=== PATIENT | male | born 1960 | race Caucasian/White ===

== ENCOUNTER 2021-03-12 22:48 | Emergency (ER) | payer BC ==
[~2021-03-12] VITALS: Ht 177.8 cm; Wt 102.2 kg
[2021-03-13] MEDS ORDERED: TETRACAINE 0.5% OPHTH SOLUTION 4ML BOTTLE. OU ONE (00:57)
[2021-03-13] MEDS ORDERED: ERYTHROMYCIN 0.5% OPHTH OINTMENT 1GM TUBE. OU ONE (00:57)
[2021-03-13] MEDS ORDERED: FLUORESCEIN 1MG EYE STRIP. OU ONE (00:57)
[2021-03-13] MEDS ORDERED: KETOROLAC TROMETHAMINE 0.5% OPHTH SOLUTION BOTTLE. OS ONE (01:30)
[2021-03-13] MEDS ORDERED: DIPH,PERTUSS(ACELL),TET VAC/PF 0.5 ML SYRINGE. VAX IM ONE (01:30)
[2021-03-13] MEDS ORDERED: ERYTHROMYCIN 0.5% OPHTH OINTMENT 1GM TUBE. OS ONE (01:30)
[2021-03-13 02:25] VITALS: BP 180/89
--- NOTE | 2021-03-14 04:59 | PHYS DOC ---
General Adult EDM: Chief Complaint: EYE PROBLEMS HPI: HPI: .." I had my soft contacts in a little long.. and I had trouble getting the Lt one out.. and I scratched. my Lt. eye.. I think.. " Patient is a 60 year old male who presents with above hx and complaints of left eye injury and attempting to remove his contact lens. Patient visiting family here locally. Patient denies any significant changes in vision but left eye feels irritated. Patient does have glasses with him. Visual acuity as per nursing showed 20/70 left eye 20/30 right eye and 20/20 both eyes. Patient denies any history of immunosuppression. No history of abnormal eye exams other than astigmatism and farsighted. Patient does do yearly checkups. Patient denies any history of immunosuppression. Patient Does not remember his last tet anus. Review of Systems: Review of Systems: Constitutional: Denies fever or chills Eyes: Complaints of left eye irritation HENT: Denies nasal congestion or sore throat Respiratory: Denies cough or shortness of breath Cardiovascular: Denies chest pain or edema GI: Denies abdominal pain, nausea, vomiting, bloody stools or diarrhea : Denies dysuria Musculoskeletal: Denies back pain or joint pain Integument: Denies rash Neurologic: Denies headache, focal weakness or sensory changes Endocrine: Denies polyuria or polydipsia Lymphatic: Denies swollen glands Psychiatric: Denies depression or anxiety Family History: Family History: Noncontributory to presentation Current Medications: Current Meds: See nursing for home meds Current Medications Medications (Trade) Dose Ordered Sig/Mirna Start Time Stop Time Status Last Admin Dose Admin Diphtheria/ Pertussis/Tetanus Vacc (ADACEL TDap SYRINGE) 0.5 ml ONCE ONCE 03/13/21 01:30 03/13/21 01:31 DC 03/13/21 02:24 0.5 ML Erythromycin (Romycin) 0.25 inch 1X ONCE 03/13/21 01:30 03/13/21 01:31 DC Fluorescein Sodium (Ful-Nancy 1mg) 1 strip 1X ONCE 03/13/21 00:57 03/13/21 00:58 DC 03/13/21 02:21 1 STRIP Ketorolac Tromethamine (Acular) 2 drop 1X ONCE 03/13/21 01:30 03/13/21 01:31 DC 03/13/21 02:22 2 DROP Tetracaine HCl (Tetracaine) 1 drop 1X ONCE 03/13/21 00:57 03/13/21 00:58 DC 03/13/21 02:23 1 DROP Allergies: Allergies: Allergies Coded Allergies Type Severity Reaction Last Updated Verified No Known Drug Allergies 03/13/21 No Physical Exam: PE: Constitutional: Moderate o acute distress, non-toxic appearance. [] HENT: Normocephalic, atraumatic, bilateral external ears normal, oropharynx moist, no oral exudates, nose slight rhinorrhea. Eyes: PERRLA, EOMI, conjunctiva injected left eye, no discharge. [] Fluorescein shows a corneal abrasion in the left eye. There is no limbus injection. No obvious cell or flare. Visual acuity as per nursing Neck: Normal range of motion, no tenderness, supple, no stridor. [] Cardiovascular:Heart rate regular rhythm, no murmur. PMI slightly left Lungs & Thorax: Bilateral breath sounds equal at apex auscultation [] Abdomen: Bowel sounds normal, soft, no tenderness, no masses, no pulsatile masses. [] Skin: Warm, dry, no erythema, no rash. [] Back: No tenderness, no CVA tenderness. [] Extremities: No tenderness, no cyanosis, no clubbing, ROM intact, no edema. [] Neurologic: Alert and oriented X 3, normal motor function, normal sensory function, no focal deficits noted. [] Psychologic: Affect anxious, judgement normal, mood normal. [] EKG: EKG: [] Radiology/Procedures: Radiology/Procedures: [] Heart Score: C/O Chest Pain: N/A Risk Factors: Risk Factors: DM, Current or recent (<one month) smoker, HTN, HLP, family history of CAD, obesity. Risk Scores: Score 0 - 3: 2.5% MACE over next 6 weeks - Discharge Home Score 4 - 6: 20.3% MACE over next 6 weeks - Admit for Clinical Observation Score 7 - 10: 72.7% MACE over next 6 weeks - Early Invasive Strategies Course & Med Decision Making: Course & Med Decision Making Pertinent Labs and Imaging studies reviewed. (See chart for details) Patient not to use contacts until left eye abrasion completely resolved. Apply erythromycin ointment 4 times a day. Use Toradol eyedrops to left eye-1 x 4 times a day for discomfort.. Follow-up primary care. Reexam if no improvement. Follow-up primary care. Must have ophthalmology follow-up. Impression: 1. Left corneal abrasion [] Dragon Disclaimer: Dragon Disclaimer: This electronic medical record was generated, in whole or in part, using a voice recognition dictation system. Departure Departure: Impression: Primary Impression: Abrasion, corneal Disposition: HOME / SELF CARE / HOMELESS Condition: GUARDED Patient Instructions: Eye - Corneal Abrasion, [id number] Additional Instructions: Do not wear contacts. Use a very small amount of erythromycin ointment 4 x day. Use Ketorolac two drops Lt. eye four times a day. Follow up with ophthalmology. Dragon Disclaimer This chart was dictated in whole or in part using Voice Recognition software in a busy, high-work load, and often noisy Emergency Department environment. It may contain unintended and wholly unrecognized errors or omissions. STAR YOU MD March 14, 2021 04:59
[2021-03-18] MEDS ORDERED: NEBI20TA2 PO (06:34)
[2021-03-18] MEDS ORDERED: LOSA1TAB22 PO (06:34)
[2021-03-18] MEDS ORDERED: ASPI81TA59 PO (06:35)
[2021-03-18] MEDS ORDERED: METF-638 PO (06:35)
[2021-03-18] MEDS ORDERED: METO25TA4 PO (06:35)
== END 2021-03-13 02:28 | disposition home or self-care (01) ==
LOC: ER 22:48
DX: S05.02XA Injury of conjunctiva and corneal abrasion without foreign body, left eye, initial encounter (principal); W22.8XXA Striking against or struck by other objects, initial encounter; Y93.89 Activity, other specified; Y92.89 Other specified places as the place of occurrence of the external cause; Y99.8 Other external cause status
CPT/HCPCS: 90471; 90715; 99284-25